=== PATIENT | female | born 1995 | race Caucasian/White ===

== ENCOUNTER 2020-10-01 11:10 | Emergency (ER) | payer OTHER ==
[~2020-10-01] VITALS: Ht 157.5 cm; Wt 72.6 kg
[2020-10-01 11:14] VITALS: Ht 157.5 cm; Wt 72.6 kg
[2020-10-01 11:42] LABS: PLATELET COUNT 268 x10^3mcL (130-400)
[2020-10-01 11:49] LABS: CALCIUM 7.6 mg/dL (8.5-10.1); CARBON DIOXIDE 20.5 mmol/L (21-32); CHLORIDE SERUM 102 mmol/L (98-107); CREATININE SERUM 1.9 mg/dL (0.6-1.0); GFR1 34 mL/min; GLUCOSE SERUM 243 mg/dL (74-106); POTASSIUM SERUM 4.1 mmol/L (3.5-5.1); SODIUM SERUM 135 mmol/L (136-145)
[2020-10-01 11:53] LABS: ALKALINE PHOSPHATASE 180 U/L (46-116); ALT/SGPT 250 U/L (14-59); AST/SGOT 292 U/L (15-37); BILIRUBIN TOTAL 1.1 mg/dL (0.20-1.00); RED CELL DISTRIBUTION WIDTH 14.6 % (11.5-14.5)
[2020-10-01 11:57] LABS: ALBUMIN 2.4 g/dL (3.4-5.0); TOTAL PROTEIN, SERUM 5.4 g/dL (6.4-8.2)
[2020-10-01 12:02] LABS: FREE T4 1.24 ng/dL (0.76-1.46); FREE THYROXINE INDEX 2.6 ug/dL (1.4-4.5); T4(THYROXINE) 8.7 ug/dL (4.7-13.3)
[2020-10-01 12:05] LABS: T3 TOTAL 2.32 ng/mL
[2020-10-01 12:29] LABS: BAND NEUTROPHIL 1 % (0-10); MONOCYTE 6 % (0-7); SEGMENTED NEUTROPHILS 74 % (37-75); rbc morphology (normal/abnorm) NORMAL (NORMAL)
[2020-10-01 13:04] LABS: AMPHETAMINE QUAL UR POSITIVE (See below)
[2020-10-02 01:00] VITALS: BP 143/91
== END 2020-10-02 00:58 | disposition left against medical advice (07) ==
LOC: ED 11:10
PROVIDERS: Emergency Medicine
DX: F19.10 Other psychoactive substance abuse, uncomplicated (principal); S76.012A Strain of muscle, fascia and tendon of left hip, initial encounter; Z20.828 Contact with and (suspected) exposure to other viral communicable diseases; X58.XXXA Exposure to other specified factors, initial encounter; Y93.89 Activity, other specified; Y92.89 Other specified places as the place of occurrence of the external cause; Y99.8 Other external cause status
CPT/HCPCS: 84439; G0480; J0696; J1885; J2310; J7060